=== PATIENT | female | born 1960 | race Caucasian/White ===

== ENCOUNTER 2017-11-15 09:04 | Emergency (ER) | payer BC ==
[~2017-11-15] VITALS: Ht 152.4 cm; Wt 66.0 kg
[2017-11-15] MEDS ORDERED: IBUP1TAB7 PO (09:26)
[2017-11-15] MEDS ORDERED: HYDR12.57 PO (09:26)
[2017-11-15] MEDS ORDERED: METO25TA3 PO (09:26)
[2017-11-15] MEDS ORDERED: KETOROLAC TROMETHAMINE 60 MG/2 ML (IM) VIAL IM ONE (09:30)
[2017-11-15] MEDS ORDERED: ORPHENADRINE INJ 60 MG/2 ML AMP IM ONE (09:30)
[2017-11-15 09:36] VITALS: BP 148/87; PULSE 65; RESP 19; TEMP 98.8; O2SAT 99
[2017-11-15 09:55] LABS: BASOPHIL % 0.7 % (0.0-2.0); EOSINOPHIL # 0.1 TH/MM3 (0-0.4); EOSINOPHIL % 2.1 % (0.0-4.0); HEMATOCRIT 41.3 % (35.0-46.0); LYMPH % 34.3 % (9.0-44.0); LYMPHOCYTE # 1.9 TH/MM3 (1.0-4.8); MEAN CELL VOLUME 86.9 FL (80.0-100.0); MEAN CORPUSCULAR HEMOGLOBIN 29.5 PG (27.0-34.0); MEAN PLATELET VOLUME 8.7 FL (7.0-11.0); MONO % 8.4 % (0.0-8.0); MONOCYTE # 0.5 TH/MM3 (0-0.9); NEUT % 54.5 % (16.0-70.0); PLATELET COUNT 242 TH/MM3 (150-450); RED BLOOD COUNT 4.75 MIL/MM3 (4.00-5.30); RED CELL DISTRIBUTION WIDTH 13.9 % (11.6-17.2); WHITE BLOOD COUNT 5.6 TH/MM3 (4.0-11.0)
[2017-11-15 10:09] LABS: BICARBONATE 24.7 MEQ/L (21.0-32.0); CALCIUM 8.3 MG/DL (8.5-10.1); CREATININE 0.83 MG/DL (0.50-1.00)
[2017-11-15] MEDS ORDERED: KETOROLAC TROMETHAMINE 30 MG/ML (IVP) VIAL IV PUSH ONE (10:15)
--- NOTE | 2017-11-15 10:23 | PD ---
HPI . Leg pain Chief Complaint: Pain: Acute or Chronic Time Seen by Provider: 09:21 Travel History International Travel<30 days: No Contact w/Intl Traveler<30days: No Traveled to known affect area: No History of Present Illness HPI Patient presents with a chief complaint of bilateral leg pain 3 weeks. History is limited because she is [place]-speaking only. She does have a man here with her who speaks some Nigerien. There has been no known injury. Her pain seems to be exacerbated by using her legs. The pain is rated 10/10. The pain has been persistent for the last 3 weeks. She has not been running any fevers. She has not been complaining with any back pain. She has not been taking anything for it but does have a bottle of prescription Motrin in her purse. This was prescribed at least 6 months ago and is a full bottle. [facility] Past Medical History Narrative Medical Medical history is significant for hypertension. Cardiovascular Problems: Yes (HTN) ?: Not Social History Tobacco Use: No Allergies-Medications (Allergen,Severity, Reaction): Coded Allergies: Penicillins (Verified Allergy, Unknown, Rash, 11/15/17) Reported Meds & Prescriptions Reported Meds & Active Scripts Active [place] (Hydrocodone-Acetaminophen) 5 Mg-325 Mg Tab 1 Tab PO Q4H PRN Prednisone (21) 10 mg tab Dose Pack (Prednisone) 10 Mg Pack 10 Mg PO DIRECTED Ibuprofen 800 Mg Tab 800 Mg PO Q8H PRN Metoprolol Tartrate 25 Mg Tab 12.5 Mg PO BID Hydrochlorothiazide 12.5 Mg Cap 12.5 Mg PO DAILY Review of Systems ROS Limitations: Language Barrier General / Constitutional: No: Fever, Chills Musculoskeletal: Positive: Myalgias, No: Limited ROM Neurologic: No: Paresthesia, Incontinence Physical Exam Narrative GENERAL: Awake and alert and in no acute distress. SKIN: Warm and dry. HEAD: Normocephalic/atraumatic. EYES: Pupils are equal. Extraocular movements are intact. NECK: Normal range of motion. CARDIOVASCULAR: Regular rate and rhythm. RESPIRATORY: Nonlabored respirations. MUSCULOSKELETAL: No L-spine tenderness. Positive bilateral buttock tenderness. She does seem to have pain with logrolling of both hips. There is tenderness to palpation of the musculature of both legs diffusely. The skin of the legs has normal color and tactile temperature. Normal capillary refill. NEUROLOGICAL: Nonfocal. PSYCHIATRIC: Appropriate mood and affect. Data Data Last Documented VS Vital Signs Date Time Temp Pulse Resp B/P (MAP) Pulse Ox O2 Delivery O2 Flow Rate FiO2 11/15/17 11:45 78 19 152/62 (92) 98 11/15/17 09:[address] Lumb Spine W/O Contrast (11/15/17 09:26) Us Leg Venous Doppler Bilat (11/15/17 09:26) Complete Blood Count With Diff (11/15/17 09:26) Basic Metabolic Panel (Bmp) (11/15/17 09:26) Creatine Kinase (Cpk) (11/15/17 09:26) Ketorolac Inj (Toradol Inj) (11/15/17 09:30) Orphenadrine Inj (Norflex Inj) (11/15/17 09:30) Ketorolac Inj (Toradol Inj) (11/15/17 10:15) Ed Discharge Order (11/15/17 11:25) Labs Laboratory Tests Test 11/15/17 09:43 White Blood Count 5.6 TH/MM3 Red Blood Count 4.75 MIL/MM3 Hemoglobin 14.0 GM/DL Hematocrit 41.3 % Mean Corpuscular Volume 86.9 FL Mean Corpuscular Hemoglobin 29.5 PG Mean Corpuscular Hemoglobin Concent 34.0 % Red Cell Distribution Width 13.9 % Platelet Count 242 TH/MM3 Mean Platelet Volume 8.7 FL Neutrophils (%) (Auto) 54.5 % Lymphocytes (%) (Auto) 34.3 % Monocytes (%) (Auto) 8.4 % Eosinophils (%) (Auto) 2.1 % Basophils (%) (Auto) 0.7 % Neutrophils # (Auto) 3.0 TH/MM3 Lymphocytes # (Auto) 1.9 TH/MM3 Monocytes # (Auto) 0.5 TH/MM3 Eosinophils # (Auto) 0.1 TH/MM3 Basophils # (Auto) 0.0 TH/MM3 CBC Comment DIFF FINAL Differential Comment Blood Urea Nitrogen 16 MG/DL Creatinine 0.83 MG/DL Random Glucose 129 MG/DL Calcium Level 8.3 MG/DL Sodium Level 142 MEQ/L Potassium Level 3.5 MEQ/L Chloride Level 110 MEQ/L Carbon Dioxide Level 24.7 MEQ/L Anion Gap 7 MEQ/L Estimat Glomerular Filtration Rate 71 ML/MIN Total Creatine Kinase 100 U/L MDM Medical Decision Making Medical Screen Exam Complete: Yes Emergency Medical Condition: Yes Medical Record Reviewed: Yes (No previous visits here) Differential Diagnosis Differential diagnosis of leg pain includes but is not limited to lumbar radiculopathy, arthritis, myalgias, DVT. Narrative Course This patient presents with bilateral lower extremity pain. History is difficult because of the language barrier. I have ordered a CT of her lumbar spine to look for spinal stenosis, etc. I have ordered ultrasounds of both lower extremities to rule out DVT. I have ordered a CK to look for rhabdomyolysis. CBC and BMP are also pending. However, I suspect that this is a simple musculoskeletal issue. In the meantime, I am treating her with Toradol and Norflex. CBC & BMP Diagram 11/15/17 09:43 Calcium Level 8.3 L CK 100 This patient will be discharged home on steroids with a referral to neurosurgery. I pulled her up [place] and she has not had any prescriptions for controlled substances filled in the state. I will give her a prescription for Hermitage. Diagnosis Primary Impression: Bilateral lower extremity pain Additional Impression: Lumbar disc disease with radiculopathy Referrals: Landen Minor MD Patient Instructions: Degenerative Disc Disease (DC), General Instructions Scripts Hydrocodone-Acetaminophen (H[place]itage) 5 Mg-325 Mg Tab 1 TAB PO Q4H Y for PAIN, #12 TAB 0 Refills Prov: Gloria Moulton MD 11/15/17 Prednisone (21) 10 mg tab Dose Pack (Prednisone (21) 10 mg tab Dose Pack) 10 Mg Pack 10 MG PO DIRECTED for Inflammation, #1 DSPK 0 Refills Prov: Gloria Moulton MD 11/15/17 Ibuprofen (Ibuprofen) 800 Mg Tab 800 MG PO Q8H Y for Pain/Inflammation, #60 TAB 0 Refills Prov: Gloria Moulton MD 11/15/17 Metoprolol Tartrate (Metoprolol Tartrate) 25 Mg Tab 12.5 MG PO BID, #60 TAB 0 Refills Prov: Gloria Moulton MD 11/15/17 Hydrochlorothiazide (Hydrochlorothiazide) 12.5 Mg Cap 12.5 MG PO DAILY, #30 CAP 0 Refills Prov: Gloria Moulton MD 11/15/17 Disposition: 01 DISCHARGE HOME Condition: Stable Gloria Moulton MD November 15, 2017 10:23
--- NOTE | 2017-11-15 10:37 | RADRPT ---
EXAM DATE/TIME: 11/15/2017 09:48 [facility] COMPARISON: No previous studies available for comparison. INDICATIONS : Bilateral leg pain. MEDICAL HISTORY : Hypertension. Bilateral leg pain. SURGICAL HISTORY : None. ENCOUNTER: Initial ACUITY: 1 week PAIN SCORE: 5/10 LOCATION: Bilateral legs. TECHNIQUE: Venous ultrasound of the left and right leg was performed from the inguinal ligament to the proximal calf. Real-time, color Doppler and spectral tracing, compression and augmentation techniques were us ed. FINDINGS: RIGHT LEG: There is normal compressibility of the deep venous system from the inguinal region to the proximal ca lf. No echogenic clot is seen in the lumen of the common femoral, femoral, popliteal, and posterior tibial veins. There is a normal response of the venous system to proximal and distal augmentation an d respiration. LEFT LEG: There is normal compressibility of the deep venous system from the inguinal region to the proximal ca lf. No echogenic clot is seen in the lumen of the common femoral, femoral, popliteal, and posterior tibial veins. There is a normal response of the venous system to proximal and distal augmentation an d respiration. CONCLUSION: Normal examination. Tahmina Carlisle MD on November 15, 2017 at 10:33 Board Certified Radiologist. This report was verified electronically.
--- NOTE | 2017-11-15 11:12 | RADRPT ---
EXAM DATE/TIME: 11/15/2017 10:33 [facility] COMPARISON: No previous studies available for comparison. INDICATIONS : Bilateral leg pain and general weakness for 3 weeks. RADIATION DOSE: 27.52 CTDIvol (mGy) MEDICAL HISTORY : Cardiovascular disease. Hyperparathyroidism. SURGICAL HISTORY : None. ENCOUNTER: Initial ACUITY: 3 weeks PAIN SCALE: 4/10 LOCATION: Bilateral Leg TECHNIQUE: Volumetric scanning of the lumbar spine was performed. Multiplanar reconstructions in the sagittal, coronal and oblique axial planes were performed. Using automated exposure control and adjustment of the mA and/or kV according to patient size, radiation dose was kept as low as reasonably achievable t o obtain optimal diagnostic quality images. DICOM format image data is available electronically for review and comparison. FINDINGS: VERTEBRAE: Normal vertebral body height. ALIGNMENT: There is grade 1 anterolisthesis of L4 on L5. The disc spaces are relatively well-preserved. T12-L1: The thecal sac has a normal diameter. No evidence of disc bulge or protrusion. The neural foramina are patent bilaterally. L1-L2: The thecal sac has a normal diameter. No evidence of disc bulge or protrusion. The neural foramina are patent bilaterally. L2-L3: The thecal sac has a normal diameter. No evidence of disc bulge or protrusion. The neural foramina are patent bilaterally. L3-L4: Minimal broad-based disc bulge and mild bilateral neuroforaminal narrowing. Moderate facet joint garcia ge. L4-L5: Grade 1 anterolisthesis of L4 and L5 associated with a broad-based disc protrusion which extends into the bilateral neural foramina. There is severe facet degenerative changes somewhat worse on the left . This results in both severe central canal stenosis as well as severe bilateral neural frontal steno sis. There is a small osteophyte projecting into the left neural foramina. L5-S1: Broad-based disc bulge. Moderate facet degenerative changes on the left and severe facet degenerative changes on the right. There is moderate severe right-sided neuroforaminal narrowing and moderate to severe left-sided arthropathy with a left sided osteophyte projecting into the neural foramina. CONCLUSION: Degenerative changes of the lumbar spine as noted above. Grade 1 anterolisthesis of L4 on 5 secondary to both degenerative disc and facet degenerative changes. Tahmina Carlisle MD on November 15, 2017 at 11:05 Board Certified Radiologist. This report was verified electronically.
[2017-11-15] MEDS ORDERED: PRED10PA PO (11:21)
[2017-11-15] MEDS ORDERED: NORC5TAB PO (11:21)
[2017-11-15 11:45] VITALS: BP 152/62
== END 2017-11-15 11:45 | disposition home or self-care (01) ==
LOC: NEPC 09:04
DX: M79.604 Pain in right leg (principal); M79.605 Pain in left leg; M51.9 Unspecified thoracic, thoracolumbar and lumbosacral intervertebral disc disorder; M54.16 Radiculopathy, lumbar region; I10 Essential (primary) hypertension; Z88.0 Allergy status to penicillin
CPT/HCPCS: 72131; 80048; 82550; 85025; 93970; 96372; 96374; 99285; J1885; J2360

== ENCOUNTER 2017-11-20 09:24 | Emergency (ER) | payer BC, OTHER ==
[~2017-11-20 09:24] MED LIST: HYDR12.57 PO; IBUP1TAB7 PO; METO25TA3 PO; NORC5TAB PO; PRED10PA PO
[2017-11-20] MEDS ORDERED: IOHEXOL 350 MG/ML 10 ML VIAL (for RAD DIAG) IVCONTRAST ONE (09:25)
[2017-11-20 09:28] VITALS: BP 178/56; PULSE 70; RESP 16; TEMP 97.7; O2SAT 99
--- NOTE | 2017-11-20 09:33 | PD ---
HPI Chief Complaint: Pain: Acute or Chronic Time Seen by Provider: 09:32 Travel History International Travel<30 days: No Contact w/Intl Traveler<30days: No Traveled to known affect area: No History of Present Illness HPI Patient is [place]-speaking only and she was interviewed by myself in [place]. The patient gives a history of about a month long she had a fall and had back pain that seem to radiate towards the front of her abdomen lower abdomen. She stated that she made this known at the time but that she did not or at least she did not think that she had any evaluation of it. This is her complaint. However today she comes in complaining of over the last 2 days worsening of her lower abdominal pain, sharp, 8 out of 10, continuous. Patient denies any alleviating or aggravating factors. Patient denies any associated factors such as nausea, vomiting, diarrhea, cough/runny nose/sore throat/frequency, urgency, dysuria, or flank pain. Patient states that she was seen here on the 12th and that she had CAT scan of her back and an ultrasound of her legs and was told that both essentially negative except for some degenerative changes in her back. She was prescribed a few tablets of [place] , which she states helped the pain however and makes her very drowsy and sleepy, and when she becomes more and more awake the pain returns. Even with myself as a negative [place] speaker it was very challenging to try and tease away the history from this patient who kept trying to connect her present symptoms with her fall that she had over a month ago. She stated that she was seen here on the 12th regarding her leg pain but at that time she also had some abdominal pain but that she was attributing everything to the back. And so she did not share this with the previous physician. A previous physician did a workup for radiculopathy including a CT of her lumbar and ultrasounds to rule out DVT. Primary care physician in [place] States allergy to penicillin Past medical history significant for hypertension only [facility] Past Medical History Cardiovascular Problems: Yes (HTN) Diminished Hearing: No Hypertension: Yes Social History Alcohol Use: No Tobacco Use: No Substance Use: No Allergies-Medications (Allergen,Severity, Reaction): Coded Allergies: Penicillins (Verified Allergy, Unknown, Rash, 11/20/17) Reported Meds & Prescriptions Reported Meds & Active Scripts Active [place] (Hydrocodone-Acetaminophen) 5 Mg-325 Mg Tab 1 Tab PO Q4H PRN Prednisone (21) 10 mg tab Dose Pack (Prednisone) 10 Mg Pack 10 Mg PO DIRECTED Ibuprofen 800 Mg Tab 800 Mg PO Q8H PRN Hydrochlorothiazide 12.5 Mg Cap 12.5 Mg PO DAILY Review of Systems General / Constitutional: No: Fever Eyes: No: Visual changes HENT: No: Headaches Cardiovascular: No: Chest Pain or Discomfort Respiratory: No: Shortness of Breath Gastrointestinal: Positive: Abdominal Pain Genitourinary: No: Dysuria Musculoskeletal: No: Pain Skin: No Rash Neurologic: No: Weakness Psychiatric: No: Depression Endocrine: No: Polydipsia Hematologic/Lymphatic: No: Easy Bruising Physical Exam Narrative GENERAL: SKIN: Warm and dry. HEAD: Atraumatic. Normocephalic. EYES: Pupils equal and round. No scleral icterus. No injection or drainage. ENT: No nasal bleeding or discharge. Mucous membranes pink and moist. NECK: Trachea midline. No JVD. CARDIOVASCULAR: Regular rate and rhythm. RESPIRATORY: No accessory muscle use. Clear to auscultation. Breath sounds equal bilaterally. GASTROINTESTINAL: Abdomen soft, non-tender, nondistended. Patient has tenderness to percussion to the left lower suprapubic and right lower quadrants. Negative obturator sign and negative psoas. However difficult to perform McBurney's or Rovsing since the entire lower quadrant is tender to percussion. MUSCULOSKELETAL: Extremities without clubbing, cyanosis, or edema. No obvious deformities. NEUROLOGICAL: Awake and alert. No obvious cranial nerve deficits. Motor grossly within normal limits. Five out of 5 muscle strength in the arms and legs. Normal speech. PSYCHIATRIC: Appropriate mood and affect; insight and judgment normal. Data Data Last Documented VS Vital Signs Date Time Temp Pulse Resp B/P (MAP) Pulse Ox O2 Delivery O2 Flow Rate FiO2 11/20/17 09:28 97.7 70 16 178/56 (96) 99 Orders Orders Complete Blood Count With Diff (11/20/17 09:45) Comprehensive Metabolic Panel (11/20/17 09:45) Lipase (11/20/17 09:45) Urinalysis - C+S If Indicated (11/20/17 09:45) Ct Abd/Pel W Iv Contrast(Rout) (11/20/17 09:45) Iv Access Insert/Monitor (11/20/17 09:45) Ecg Monitoring (11/20/17 09:45) Oximetry (11/20/17 09:45) NPO (11/20/17 09:45) Morphine Inj (Morphine Inj) (11/20/17 09:45) Sodium Chlor 0.9% 1000 Ml Inj (Ns 1000 M (11/20/17 09:45) Sodium Chloride 0.9% Flush (Ns Flush) (11/20/17 09:45) Prochlorperazine Inj (Compazine Inj) (11/20/17 09:45) Oral Contrast - Adult (11/20/17 10:02) Diatrizoate Liq ( Gastroview Liq) (11/20/17 10:48) Iohexol 350 Inj (Omnipaque 350 Inj) (11/20/17 09:25) Labs Laboratory Tests Test 11/20/17 10:35 White Blood Count 7.7 TH/MM3 Red Blood Count 5.02 MIL/MM3 Hemoglobin 14.9 GM/DL Hematocrit 43.5 % Mean Corpuscular Volume 86.6 FL Mean Corpuscular Hemoglobin 29.6 PG Mean Corpuscular Hemoglobin Concent 34.1 % Red Cell Distribution Width 13.7 % Platelet Count 259 TH/MM3 Mean Platelet Volume 9.6 FL Neutrophils (%) (Auto) 59.2 % Lymphocytes (%) (Auto) 31.0 % Monocytes (%) (Auto) 7.4 % Eosinophils (%) (Auto) 1.8 % Basophils (%) (Auto) 0.6 % Neutrophils # (Auto) 4.6 TH/MM3 Lymphocytes # (Auto) 2.4 TH/MM3 Monocytes # (Auto) 0.6 TH/MM3 Eosinophils # (Auto) 0.1 TH/MM3 Basophils # (Auto) 0.0 TH/MM3 CBC Comment DIFF FINAL Differential Comment Urine Color LIGHT-YELLOW Urine Turbidity CLEAR Urine pH 5.5 Urine Specific [place] 1.004 Urine Protein NEG mg/dL Urine Glucose (UA) NEG mg/dL Urine Ketones NEG mg/dL Urine Occult Blood TRACE Urine Nitrite NEG Urine Bilirubin NEG Urine Urobilinogen LESS THAN 2.0 MG/DL Urine Leukocyte Esterase NEG Urine Squamous Epithelial Cells 5 /hpf Urine Bacteria RARE /hpf Microscopic Urinalysis Comment CULT NOT INDICATED Blood Urea Nitrogen 13 MG/DL Creatinine 0.74 MG/DL Random Glucose 102 MG/DL Total Protein 7.0 GM/DL Albumin 3.4 GM/DL Calcium Level 8.7 MG/DL Alkaline Phosphatase 79 U/L Aspartate Amino Transf (AST/SGOT) 51 U/L Alanine Aminotransferase (ALT/SGPT) 54 U/L Total Bilirubin 0.3 MG/DL Sodium Level 141 MEQ/L Potassium Level 3.5 MEQ/L Chloride Level 107 MEQ/L Carbon Dioxide Level 25.2 MEQ/L Anion Gap 9 MEQ/L Estimat Glomerular Filtration Rate 81 ML/MIN Lipase 116 U/L [facility] Medical Decision Making Medical Screen Exam Complete: Yes Emergency Medical Condition: Yes Medical Record Reviewed: Yes Differential Diagnosis Colitis versus diverticulitis versus appendicitis versus UTI Narrative Course CBC does not show any evidence of leukocytosis, no anemia, no left shift, and normal platelet count Urinalysis so show any evidence of UTI Electrolytes are all within normal limits with a normal kidney and pancreatic functions. AST and ALT are mildly elevated at 51 and 54 respectively, however has a normal bilirubin and alkaline phosphatase. CT abdomen and pelvis read by radiologist as prominent uterus with a 3.2 cm mass in the posterior fundus most likely representing a large uterine fibroid, a 1.7 cm right ovarian cyst is also present, and findings consistent with cholecystectomy. Diagnosis Primary Impression: Symptomatic fibroid Additional Impression: Ovarian cyst Referrals: Harmony Price MD FOR SYMPTOMATIC CARE OF YOUR FIBROIDS Scripts Naproxen DR (Naproxen EC) 375 Mg Tabdr 375 MG PO BID, #10 TAB 0 Refills Prov: Danish Nettles MD 11/20/17 Disposition: 01 DISCHARGE HOME Condition: Stable Danish Nettles MD November 20, 2017 09:33
[2017-11-20] MEDS ORDERED: MORPHINE SULFATE 4 MG/ML INJ IV PUSH ONE (09:45)
[2017-11-20] MEDS ORDERED: SODIUM CHLORIDE 0.9% FLUSH 10 ML FLUSH IV FLUSH PRN (09:45)
[2017-11-20] MEDS ORDERED: PROCHLORPERAZINE INJ 10 MG/2 ML VIAL IV PUSH ONE (09:45)
[2017-11-20] MEDS ORDERED: SODIUM CHLOR 0.9% 1000 ML INJ 1,000 ML IV SCH (09:45)
[2017-11-20] MEDS ORDERED: DIATRIZOATE MEGLUM/DIATRIZOATE SOD 9 ML CUP ONE (10:48)
[2017-11-20 11:26] LABS: AUTOMATED NEUTROPHIL # 4.6 TH/MM3 (1.8-7.7); BASOPHIL % 0.6 % (0.0-2.0); EOSINOPHIL # 0.1 TH/MM3 (0-0.4); EOSINOPHIL % 1.8 % (0.0-4.0); HEMATOCRIT 43.5 % (35.0-46.0); HEMOGLOBIN 14.9 GM/DL (11.6-15.3); LYMPHOCYTE # 2.4 TH/MM3 (1.0-4.8); MEAN CELL VOLUME 86.6 FL (80.0-100.0); MEAN CORPUSCULAR HEMOGLOBIN 29.6 PG (27.0-34.0); MEAN CORPUSCULAR HGB CONC 34.1 % (32.0-36.0); MEAN PLATELET VOLUME 9.6 FL (7.0-11.0); MONO % 7.4 % (0.0-8.0); MONOCYTE # 0.6 TH/MM3 (0-0.9); NEUT % 59.2 % (16.0-70.0); PLATELET COUNT 259 TH/MM3 (150-450); RED BLOOD COUNT 5.02 MIL/MM3 (4.00-5.30); RED CELL DISTRIBUTION WIDTH 13.7 % (11.6-17.2); WHITE BLOOD COUNT 7.7 TH/MM3 (4.0-11.0)
[2017-11-20 11:49] LABS: BACTERIA, URINE RARE /hpf; BILIRUBIN, URINE NEG (NEG); BLOOD, URINE TRACE (NEG); GLUCOSE,URINE NEG (NEG); KETONE, URINE NEG (NEG); NITRITE,URINE NEG (NEG); PH, URINE 5.5 (5.0-8.5); SQUAMOUS EPITHELIAL CELL URINE 5 /hpf (0-5); URINE COLOR LIGHT-YELLOW (YELLW/STRAW); URINE LEUKOCYTE ESTERASE NEG (NEG)
[2017-11-20 11:52] LABS: ALBUMIN 3.4 GM/DL (3.4-5.0); ALKALINE PHOSPHATASE 79 U/L (45-117); ALT (GPT) 54 U/L (10-53); AST (GOT) 51 U/L (15-37); BLOOD UREA NITROGEN 13 MG/DL (7-18); CALCIUM 8.7 MG/DL (8.5-10.1); CHLORIDE 107 MEQ/L (98-107); CREATININE 0.74 MG/DL (0.50-1.00); GLOMERULAR FILTRATION RATE 81 ML/MIN (>89); GLUCOSE,RANDOM 102 MG/DL (74-106); SODIUM (NA) 141 MEQ/L (136-145); TOTAL BILIRUBIN ADULT 0.3 MG/DL (0.2-1.0)
[2017-11-20 11:53] LABS: BICARBONATE 25.2 MEQ/L (21.0-32.0)
--- NOTE | 2017-11-20 13:57 | RADRPT ---
EXAM DATE/TIME: 11/20/2017 13:22 [place] Corrected on: November 20, 2017; [facility] COMPARISON: No previous studies available for comparison. INDICATIONS : Lower abdominal tenderness IV CONTRAST: 90 cc Omnipaque 350 (iohexol) IV ORAL CONTRAST: Prescribed oral contrast ingested. RADIATION DOSE: 12.19 CTDIvol (mGy) MEDICAL HISTORY : Hypertension. SURGICAL HISTORY : None. ENCOUNTER: Initial ACUITY: 1 day PAIN SCALE: 8/10 LOCATION: Abdomen TECHNIQUE: Volumetric scanning of the abdomen and pelvis was performed. Using automated exposure control and ad justment of the mA and/or kV according to patient size, radiation dose was kept as low as reasonably achievable to obtain optimal diagnostic quality images. DICOM format image data is available electro nically for review and comparison. FINDINGS: LOWER LUNGS: 8mm pleural based pulmonary nodule in the right lung base. Left lung base is clear. LIVER: Homogeneous density without lesion. There is no dilation of the biliary tree. No gallbladder, surgi jere removed.. SPLEEN: Normal size without lesion. PANCREAS: Within normal limits. KIDNEYS: Normal in size and shape. There is no mass, stone or hydronephrosis. ADRENAL GLANDS: Within normal limits. VASCULAR: There is no aortic aneurysm. BOWEL/MESENTERY: The stomach, small bowel, and colon demonstrate no acute abnormality. There is no free intraperitone al air or fluid. The appendix is unremarkable. No inflammatory changes. Distal to proximal colon. ABDOMINAL WALL: Within normal limits. RETROPERITONEUM: There is no lymphadenopathy. BLADDER: No wall thickening or mass. REPRODUCTIVE: The uterus appears to be prominent. There is a low density mass in the posterior fundus measuring 3.2 cm. This is most likely a large uterine fibroid. There is a 1.7 cm right ovarian cyst. INGUINAL: There is no lymphadenopathy or hernia. MUSCULOSKELETAL: Within normal limits for patient age. CONCLUSION: 1. Prominent uterus with a 3.2 cm mass in the posterior fundus most likely representing a large uteri ne fibroid. 2. 1.7 cm right ovarian cyst. 3. Status post cholecystectomy. 4. 8mm nonspecific pleural-based pulmonary nodule right lung base. This finding is nonspecific. Recom mend a noncontrast CT thorax on a nonemergent outpatient basis for further evaluation. David Araiza MD on November 20, 2017 at 13:51 Board Certified Radiologist. This report was verified electronically. David Araiza MD on November 20, 2017 at 14:22 Board Certified Radiologist. This report was verified electronically.
[2017-11-20] MEDS ORDERED: NAPR375T4 PO (14:37)
[2017-11-20 15:10] VITALS: BP 160/50
== END 2017-11-20 15:21 | disposition home or self-care (01) ==
LOC: NEPD 09:24
DX: D25.9 Leiomyoma of uterus, unspecified (principal); N83.201 Unspecified ovarian cyst, right side; I10 Essential (primary) hypertension; Z88.0 Allergy status to penicillin
CPT/HCPCS: 74177; 80053; 81001; 83690; 85025; 96374; 99284; J0780; J2270; J7030; Q9963; Q9967